=== PATIENT | male | born 2000 | race Caucasian/White ===

== ENCOUNTER 2020-11-17 11:27 | Day surgery (SDC) | payer OTHER, SELFPAY ==
[~2020-11-17] VITALS: Ht 182.9 cm; Wt 108.9 kg
[2020-11-17] MEDS ORDERED: fentaNYL citrate 0.05 MG/ML VIAL ONE (13:10)
[2020-11-17] MEDS ORDERED: MIDAZOLAM 5 MG/5 ML VIAL ONE (13:10)
[2020-11-17] MEDS ORDERED: diphenhydrAMINE 50 MG/ML VIAL ONE (13:11)
[2020-11-17] MEDS ORDERED: MIDAZOLAM 2 MG/2 ML VIAL IVP ONE (13:55)
[2020-11-17] MEDS ORDERED: fentaNYL citrate 0.05 MG/ML VIAL IVP ONE (13:55)
[2020-11-17] MEDS ORDERED: diphenhydrAMINE 50 MG/ML VIAL IVP ONE (13:55)
== END 2020-11-17 14:21 | disposition home or self-care (01) ==
LOC: MDS 11:27 → MMU 11:33 → MDS 14:21
PROVIDERS: ATTEND Internal Medicine Gastroenterology
DX: R10.13 Epigastric pain (principal); K21.9 Gastro-esophageal reflux disease without esophagitis; K59.00 Constipation, unspecified; Z80.0 Family history of malignant neoplasm of digestive organs; Z79.899 Other long term (current) drug therapy; Z20.828 Contact with and (suspected) exposure to other viral communicable diseases
CPT/HCPCS: 43239; J1200; J2250; J3010; U0003; 88305; 88312; 88313; 88342